=== PATIENT | female | born 2000 | race Hispanic/Latino ===

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

== ENCOUNTER 2019-01-03 20:22 | Emergency (ER) | payer MEDICAID, OTHER ==
[2019-01-03 21:04] LABS: BASOPHILS % (AUTO) 0.8 % (0.0-5.0); EOSINOPHILS % (AUTO) 1.5 % (0.0-8.0); HEMATOCRIT 38.7 % (36-48); LYMPHOCYTES % (AUTO) 27.8 % (21.0-51.0); MEAN CORPUSCULAR HEMOGLOBIN 33.4 pg (27.0-33.0); MEAN CORPUSCULAR VOLUME 95.5 fL (80-100); MONOCYTES % (AUTO) 7.8 % (3.0-13.0); NEUTROPHILS % (AUTO) 62.1 % (40.0-77.0); PLATELET COUNT (AUTO) 248 K/uL (130-400); RED BLOOD CELL COUNT(AUTO) 4.06 MIL/uL (4.00-5.50); RED CELL DISTRIBUTION WIDTH 12.5 % (11.0-15.5); WHITE BLOOD COUNT (AUTO) 8.6 K/uL (4.8-10.8)
[2019-01-03 21:20] LABS: APPEARANCE,URINE Cloudy (CLEAR); BILIRUBIN,URINE Negative (NEGATIVE); COLOR,URINE Yellow (YELLOW); GLUCOSE, URINE (UA) Negative (NEGATIVE); KETONES,URINE Negative (NEGATIVE); LEUKOCYTE ESTERASE ,URINE Negative (NEGATIVE); NITRATE,URINE Negative (NEGATIVE); OCCULT BLOOD,URINE Negative (NEGATIVE); PROTEIN,URINE Negative (NEGATIVE)
[2019-01-03 21:23] LABS: HCG,QUAL RESULT POSITIVE (NEGATIVE)
[2019-01-03 21:26] LABS: CREATININE 0.6 mg/dL (0.5-1.5); POTASSIUM 3.4 mmol/L (3.5-5.1)
[2019-01-03 21:38] LABS: BACTERIA,URINE Rare /HPF (None Seen); MUCUS,URINE Few LPF (None Seen); RBC,URINE 0-1 /HPF (0-1); SQUAMOUS EPITHELIAL CELL,UR 0-2 /HPF (0-2); WBC,URINE 0-1 /HPF (0-1)
[2019-01-03 21:49] LABS: AMPHET/METH SCREEN,URINE NEGATIVE (NEGATIVE); BARBITURATE SCREEN, URINE NEGATIVE (NEGATIVE); BENZODIAZEPINES SCREEN,URINE NEGATIVE (NEGATIVE); CANNABINOID SCREEN,URINE NEGATIVE (NEGATIVE); COCAINE SCREEN,URINE NEGATIVE (NEGATIVE); OPIATE SCREEN,URINE NEGATIVE (NEGATIVE); PHENCYCLIDINE SCREEN,URINE NEGATIVE (NEGATIVE)
== END 2019-01-03 23:14 | disposition home or self-care (01) ==
LOC: EDH 20:22
DX: O20.0 Threatened abortion (principal); O99.511 Diseases of the respiratory system complicating pregnancy, first trimester; J45.909 Unspecified asthma, uncomplicated; Z3A.01 Less than 8 weeks gestation of pregnancy
CPT/HCPCS: 36415; 76801; 80048; 80305; 81001; 81025; 84702; 85025; 86850; 86900; 86901

== ENCOUNTER 2019-03-15 04:20 | Emergency (ER) | payer MEDICAID ==
[2019-03-15 04:53] LABS: APPEARANCE,URINE Clear (CLEAR); BILIRUBIN,URINE Negative (NEGATIVE); COLOR,URINE Yellow (YELLOW); GLUCOSE, URINE (UA) Negative (NEGATIVE); KETONES,URINE Negative (NEGATIVE); LEUKOCYTE ESTERASE ,URINE Negative (NEGATIVE); NITRATE,URINE Negative (NEGATIVE); OCCULT BLOOD,URINE Negative (NEGATIVE); PROTEIN,URINE Negative (NEGATIVE)
[2019-03-15 05:02] LABS: HCG,QUAL RESULT POSITIVE (NEGATIVE)
[2019-03-15 05:08] LABS: BASOPHILS % (AUTO) 0.5 % (0.0-5.0); EOSINOPHILS % (AUTO) 1.1 % (0.0-8.0); HEMATOCRIT 32.2 % (36-48); LYMPHOCYTES % (AUTO) 29.6 % (21.0-51.0); MEAN CORPUSCULAR HEMOGLOBIN 34.2 pg (27.0-33.0); MEAN CORPUSCULAR HGB CONC 35.6 g/dL (32.0-36.0); MEAN CORPUSCULAR VOLUME 96.1 fL (80-100); MONOCYTES % (AUTO) 6.5 % (3.0-13.0); NEUTROPHILS % (AUTO) 62.3 % (40.0-77.0); NUCLEATED RED BLOOD CELLS 0.1 % (0.0-0.19); PLATELET COUNT (AUTO) 200 K/uL (130-400); RED BLOOD CELL COUNT(AUTO) 3.36 MIL/uL (4.00-5.50); RED CELL DISTRIBUTION WIDTH 12.4 % (11.0-15.5); WHITE BLOOD COUNT (AUTO) 6.9 K/uL (4.8-10.8)
[2019-03-15 05:18] LABS: CREATININE 0.5 mg/dL (0.5-1.5); POTASSIUM 3.8 mmol/L (3.5-5.1)
== END 2019-03-15 06:07 | disposition home or self-care (01) ==
LOC: EDH 04:20
DX: O20.9 Hemorrhage in early pregnancy, unspecified (principal); R10.2 Pelvic and perineal pain; Z3A.15 15 weeks gestation of pregnancy
CPT/HCPCS: 36415; 76805; 80048; 81003; 81025; 84702; 85025

== ENCOUNTER 2019-03-21 10:19 | Emergency (ER) | payer MEDICAID | END 2019-03-21 10:38 | disposition home or self-care (01) | LOC: EDH 10:19 | DX: Z04.3 Encounter for examination and observation following other accident (principal); O26.892 Other specified pregnancy related conditions, second trimester; Z79.899 Other long term (current) drug therapy; Z3A.17 17 weeks gestation of pregnancy; W01.0XXA Fall on same level from slipping, tripping and stumbling without subsequent striking against object, initial encounter; Y93.89 Activity, other specified; Y92.89 Other specified places as the place of occurrence of the external cause; Y99.8 Other external cause status | CPT/HCPCS: 99281 ==

== ENCOUNTER 2019-06-14 16:58 | Observation (INO) | payer MEDICAID ==
[2019-06-14 17:37] LABS: APPEARANCE,URINE Clear (CLEAR); BILIRUBIN,URINE Negative (NEGATIVE); COLOR,URINE Yellow (YELLOW); GLUCOSE, URINE (UA) Negative (NEGATIVE); KETONES,URINE Negative (NEGATIVE); LEUKOCYTE ESTERASE ,URINE Negative (NEGATIVE); NITRATE,URINE Negative (NEGATIVE); OCCULT BLOOD,URINE Negative (NEGATIVE); PROTEIN,URINE Negative (NEGATIVE); UROBILINOGEN,URINE 0.2 mg/dL (0.2-1.0)
== END 2019-06-14 18:25 | disposition home or self-care (01) ==
LOC: EDH 16:58 → LDH 17:10
PROVIDERS: ADMIT Obstetrics & Gynecology; ATTEND Obstetrics & Gynecology
DX: O62.9 Abnormality of forces of labor, unspecified (principal); Z3A.29 29 weeks gestation of pregnancy
CPT/HCPCS: 81003; 99284; G0378

== ENCOUNTER 2019-06-20 18:24 | Observation (INO) | payer MEDICAID ==
[~2019-06-20] VITALS: Ht 152.4 cm; Wt 80.7 kg
[2019-06-20 19:18] LABS: APPEARANCE,URINE Clear (CLEAR); BILIRUBIN,URINE Negative (NEGATIVE); COLOR,URINE Yellow (YELLOW); GLUCOSE, URINE (UA) Negative (NEGATIVE); KETONES,URINE Trace mg/dL (NEGATIVE); LEUKOCYTE ESTERASE ,URINE Negative (NEGATIVE); NITRATE,URINE Negative (NEGATIVE); OCCULT BLOOD,URINE Negative (NEGATIVE); PROTEIN,URINE Negative (NEGATIVE); UROBILINOGEN,URINE 0.2 mg/dL (0.2-1.0)
[2019-06-20 19:26] LABS: AMPHET/METH SCREEN,URINE NEGATIVE (NEGATIVE); BARBITURATE SCREEN, URINE NEGATIVE (NEGATIVE); BENZODIAZEPINES SCREEN,URINE NEGATIVE (NEGATIVE); CANNABINOID SCREEN,URINE NEGATIVE (NEGATIVE); COCAINE SCREEN,URINE NEGATIVE (NEGATIVE); OPIATE SCREEN,URINE NEGATIVE (NEGATIVE); PHENCYCLIDINE SCREEN,URINE NEGATIVE (NEGATIVE)
[2019-06-20 19:32] LABS: BACTERIA,URINE Rare /HPF (None Seen); MUCUS,URINE Rare LPF (None Seen); RBC,URINE 0-1 /HPF (0-1); SQUAMOUS EPITHELIAL CELL,UR Rare /HPF (0-2); WBC,URINE 0-1 /HPF (0-1)
[2019-06-20] MEDS ORDERED: LACTATED RINGERS 1000ML IV PRN (20:00)
[2019-06-20] MEDS ORDERED: TERBUTALINE SULFATE VIAL 1MG/ML SQ ONE (21:30)
== END 2019-06-20 23:30 | disposition home or self-care (01) ==
LOC: EDH 18:24 → LDH 18:25
PROVIDERS: ADMIT Obstetrics & Gynecology; ATTEND Obstetrics & Gynecology
DX: O42.913 Preterm premature rupture of membranes, unspecified as to length of time between rupture and onset of labor, third trimester (principal); O99.513 Diseases of the respiratory system complicating pregnancy, third trimester; R10.2 Pelvic and perineal pain; J45.909 Unspecified asthma, uncomplicated; Z3A.29 29 weeks gestation of pregnancy
CPT/HCPCS: 80305; 81001; 96372; 99284; G0378 ×5; J3105; 96360

== ENCOUNTER 2019-06-28 18:25 | Observation (INO) | payer MEDICAID ==
[~2019-06-28] VITALS: Ht 152.4 cm; Wt 80.7 kg
[2019-06-28 19:00] LABS: BILIRUBIN,URINE Negative (NEGATIVE); COLOR,URINE Yellow (YELLOW); GLUCOSE, URINE (UA) Negative (NEGATIVE); KETONES,URINE Negative (NEGATIVE); LEUKOCYTE ESTERASE ,URINE Negative (NEGATIVE); NITRATE,URINE Negative (NEGATIVE); OCCULT BLOOD,URINE Negative (NEGATIVE); PROTEIN,URINE Negative (NEGATIVE); UROBILINOGEN,URINE 0.2 mg/dL (0.2-1.0)
[2019-06-28 19:05] LABS: APPEARANCE,URINE CLEAR (CLEAR)
[2019-06-28 19:21] VITALS: BP 119/59
[2019-08-13] MEDS ORDERED: PREN-196 PO (18:27)
== END 2019-06-28 20:00 | disposition home or self-care (01) ==
LOC: EDH 18:25 → LDH 18:26
PROVIDERS: ADMIT Obstetrics & Gynecology; ATTEND Obstetrics & Gynecology
DX: O99.513 Diseases of the respiratory system complicating pregnancy, third trimester (principal); J45.909 Unspecified asthma, uncomplicated; Z3A.30 30 weeks gestation of pregnancy
CPT/HCPCS: 81003; 99284; G0378

== ENCOUNTER 2019-08-09 17:22 | Observation (INO) | payer MEDICAID ==
[~2019-08-09] VITALS: Ht 152.4 cm; Wt 85.7 kg
[2019-08-09 18:01] LABS: APPEARANCE,URINE Clear (CLEAR); BILIRUBIN,URINE Negative (NEGATIVE); COLOR,URINE Yellow (YELLOW); GLUCOSE, URINE (UA) Negative (NEGATIVE); KETONES,URINE Negative (NEGATIVE); LEUKOCYTE ESTERASE ,URINE Small (NEGATIVE); NITRATE,URINE Negative (NEGATIVE); OCCULT BLOOD,URINE Negative (NEGATIVE); PH,URINE 7.5 (5.0-8.0); PROTEIN,URINE Negative (NEGATIVE); UROBILINOGEN,URINE 0.2 mg/dL (0.2-1.0)
[2019-08-09 18:16] LABS: RBC,URINE 0-1 /HPF (0-1)
[2019-08-09 18:17] LABS: BACTERIA,URINE Rare /HPF (None Seen)
[2019-08-09 18:18] LABS: SQUAMOUS EPITHELIAL CELL,UR Few /HPF (0-2)
== END 2019-08-09 19:15 | disposition home or self-care (01) ==
LOC: EDH 17:22 → LDH 17:36
PROVIDERS: ADMIT Obstetrics & Gynecology; ATTEND Obstetrics & Gynecology
DX: O36.8130 Decreased fetal movements, third trimester, not applicable or unspecified (principal); O99.513 Diseases of the respiratory system complicating pregnancy, third trimester; J45.909 Unspecified asthma, uncomplicated; Z3A.36 36 weeks gestation of pregnancy
CPT/HCPCS: 76819; 81001; 99284; G0378 ×2

== ENCOUNTER 2019-08-12 12:50 | Inpatient (IN) | payer MEDICAID ==
[~2019-08-12] VITALS: Ht 152.4 cm; Wt 85.7 kg
[2019-08-12 13:25] VITALS: BP 118/58
[2019-08-12 13:26] VITALS: BP 113/58
[2019-08-12] MEDS ORDERED: AMPICILLIN 2GM+NS 100ML 100 ML IV SCH (13:30)
[2019-08-12 13:49] LABS: HEMATOCRIT 34.2 % (36-48); MEAN CORPUSCULAR HEMOGLOBIN 32.5 pg (27.0-33.0); MEAN CORPUSCULAR HGB CONC 34.5 g/dL (32.0-36.0); MEAN CORPUSCULAR VOLUME 94.2 fL (80-100); PLATELET COUNT (AUTO) 201 K/uL (130-400); RED BLOOD CELL COUNT(AUTO) 3.63 MIL/uL (4.00-5.50); RED CELL DISTRIBUTION WIDTH 12.7 % (11.0-15.5); WHITE BLOOD COUNT (AUTO) 8.6 K/uL (4.8-10.8)
[2019-08-12] MEDS: LACTATED RINGERS 1000ML 1,000 ML IV PRN (13:51)
[2019-08-12] MEDS: AMPICILLIN 1GM+NS 50ML 50 ML IV SCH ×2 (18:00→22:00)
[2019-08-13] MEDS: AMPICILLIN 1GM+NS 50ML 50 ML IV SCH ×2 (01:30→21:30)
[2019-08-13] MEDS ORDERED: OXYTOCIN 10 USP UNITS/ML 20 UNIT in LACTATED RINGERS 1000ML 1,000 ML IV SCH (03:00)
[2019-08-13] MEDS ORDERED: OXYTOCIN-LR 20 UNITS/1000 ML 1,000 ML IV ONE (03:03)
[2019-08-13] MEDS ORDERED: LACTATED RINGERS 500 ML 500 ML IV PRN (07:30)
[2019-08-13] MEDS ORDERED: ROPIVACAINE 0.2% 100ML VIAL 100 ML EP SCH (07:30)
[2019-08-13] MEDS ORDERED: EPHEDRINE SULFATE 50 MG/ML AMPULE IVP PRN (07:30)
[2019-08-13] MEDS ORDERED: NALOXONE HCL 0.4 MG/1 ML ML IV PRN (07:30)
[2019-08-13 08:10] LABS: HEPATITIS Bs ANTIGEN SCREEN P Negative (Negative)
[2019-08-13] MEDS ORDERED: MEPERIDINE-PF 50 MG/ML SYG IVP PRN (08:16)
[2019-08-13] MEDS ORDERED: PROMETHAZINE HCL 25 MG/ML 1ML AMPULE IM PRN ×2 (08:16→15:30)
[2019-08-13] MEDS ORDERED: FENTANYL CITRATE PF 50 MCG/1 ML 2ML VIAL ONE ×2 (10:11→14:26)
[2019-08-13] MEDS ORDERED: CALDOLOR 800MG+NS 250ML 250 ML IV ONE (13:55)
[2019-08-13] MEDS ORDERED: CEFAZOLIN SODIUM 1 GM VIAL ONE (13:55)
[2019-08-13] MEDS ORDERED: OXYTOCIN-LR 20 UNITS/1000 ML 2,000 ML IV ONE (13:56)
[2019-08-13] MEDS ORDERED: CEFAZOLIN SODIUM 1 GM VIAL IVP PRN (14:00)
[2019-08-13] MEDS ORDERED: MISOPROSTOL 200 MCG TABLET ONE (14:22)
[2019-08-13] MEDS ORDERED: METHYLERGONOVINE MALEATE 0.2 MG/1 ML ML ONE (14:22)
[2019-08-13] MEDS ORDERED: CITRIC ACID/SODIUM CITRATE 30 ML UDCUP ONE (14:25)
[2019-08-13] MEDS ORDERED: METOCLOPRAMIDE 10 MG/2 ML VIAL ONE (14:25)
[2019-08-13] MEDS ORDERED: MISOPROSTOL 200 MCG TABLET VG PRN (14:30)
[2019-08-13] MEDS ORDERED: OXYTOCIN-LR 20 UNITS/1000 ML 1,000 ML IV SCH ×2 (14:30→16:15)
[2019-08-13] MEDS ORDERED: LIDOCAINE PF 2% 5ML ABBOJECT ONE (14:30)
[2019-08-13] MEDS ORDERED: TRANEXAMIC ACID 1000MG/10ML IV PRN (14:30)
[2019-08-13] MEDS ORDERED: METHYLERGONOVINE MALEATE 0.2 MG/1 ML ML IM PRN (14:30)
[2019-08-13] MEDS ORDERED: MEPERIDINE-PF 25 MG/ML SYG ONE (14:49)
[2019-08-13] MEDS ORDERED: PHENYLEPHRINE HCL 10 MG/ML 1ML VIAL IV ONE (14:52)
[2019-08-13] MEDS ORDERED: DURAMORPH PF1 MG/ML 10ML AMP IV ONE (14:52)
[2019-08-13] MEDS ORDERED: OXYTOCIN 10 UNIT/1ML 10ML VIAL ONE (14:57)
[2019-08-13] MEDS ORDERED: ONDANSETRON HCL 4 MG/2 ML VIAL ONE (15:04)
[2019-08-13] MEDS ORDERED: DIPH,PERTUSS(ACELL),TET VAC/PF 0.5 ML VIAL IM SCH (15:30)
[2019-08-13] MEDS ORDERED: LANOLIN 30GM OINTMENT TP PRN (15:30)
[2019-08-13] MEDS ORDERED: SODIUM CHLORIDE 0.9% 10 ML VIAL IVP PRN (15:30)
[2019-08-13] MEDS ORDERED: DEXTROSE 5 %-0.45 % NACL 1,000 ML IV PRN (15:30)
[2019-08-13] MEDS ORDERED: MEASLES/MUMPS/RUBELLA VACCINE, LIVE 0.5 ML/VIAL SQ SCH (15:30)
[2019-08-13] MEDS ORDERED: MEPERIDINE-PF 75 MG/ML SYG IM PRN (15:30)
[2019-08-13] MEDS ORDERED: HYDROCODONE/ACETAMINOPHEN 5/325 MG TAB PO PRN (15:30)
[2019-08-13] MEDS ORDERED: IBUPROFEN 600 MG TABLET PO PRN (15:30)
[2019-08-13] MEDS ORDERED: ACETAMINOPHEN-CODEINE 300/30MG TAB PO PRN (15:30)
[2019-08-13] MEDS ORDERED: BISACODYL 10 MG SUPP.RECT RC PRN (15:30)
[2019-08-13] MEDS ORDERED: OXYTOCIN-LR 20 UNITS/1000 ML 1,000 ML IV PRN (15:30)
[2019-08-13] MEDS ORDERED: LORATADINE 10 MG TABLET PO PRN (18:00)
[2019-08-13 18:11] VITALS: BP 128/66
[2019-08-13] MEDS ORDERED: PREN-196 PO ×2 (18:27)
[2019-08-13 19:30] VITALS: BP 136/78
[2019-08-13] MEDS: DOCUSATE SODIUM 100 MG CAP PO SCH (21:21)
[2019-08-13] MEDS: SIMETHICONE 80 MG TAB.CHEW PO PRN (21:21)
[2019-08-13] MEDS: LACTATED RINGERS 1000ML 1,000 ML IV SCH (22:06)
[2019-08-13] MEDS: CALDOLOR 800MG+NS 250ML 250 ML IV SCH ×2 (22:30→23:34)
[2019-08-13] MEDS: IBUPROFEN 800 MG TAB PO SCH (23:30)
[2019-08-13 23:55] VITALS: BP 110/58
[2019-08-14] MEDS: AMPICILLIN 1GM+NS 50ML 50 ML IV SCH ×2 (01:30→05:30)
[2019-08-14 04:00] VITALS: BP 116/62
[2019-08-14] MEDS: LACTATED RINGERS 1000ML 1,000 ML IV SCH (04:46)
[2019-08-14 05:53] LABS: HEMATOCRIT 28.8 % (36-48); MEAN CORPUSCULAR HEMOGLOBIN 32.7 pg (27.0-33.0); PLATELET COUNT (AUTO) 152 K/uL (130-400); RED CELL DISTRIBUTION WIDTH 12.7 % (11.0-15.5); WHITE BLOOD COUNT (AUTO) 10.1 K/uL (4.8-10.8)
--- NOTE | 2019-08-14 06:00 | NUR ---
EPIDURAL D/C EPIDURAL DISCONTINUED ORDERED. PATIENT ASSISTED INTO L. LATERAL POSITION TO REMOVE EPIDURAL CATHETER. BLUE TIP INTACT, PATIENT TOLERATED WELL. PATIENT ASSISTED INTO SUPINE POSITION AND ALTAGRACIA CARE PROVIDED. NEW PADS PLACED. PATIENT INSTRUCTED TO CALL FOR ASSISTANCE IF NEEDING ANYTHING. CALL BAR PLACED WITHIN REACH.
[2019-08-14] MEDS: CALDOLOR 800MG+NS 250ML 250 ML IV SCH ×2 (06:23→07:32)
[2019-08-14 08:00] VITALS: BP 107/62
[2019-08-14] MEDS ORDERED: LIDOCAINE 5% TOPICAL PATCH TP SCH (09:00)
[2019-08-14] MEDS: DOCUSATE SODIUM 100 MG CAP PO SCH (09:04)
[2019-08-14] MEDS: SIMETHICONE 80 MG TAB.CHEW PO PRN (09:04)
[2019-08-14 11:37] VITALS: BP 101/50
[2019-08-14 15:40] VITALS: BP 118/48
[2019-08-14] MEDS: IBUPROFEN 800 MG TAB PO SCH (16:13)
--- NOTE | 2019-08-14 17:25 | NUR ---
DISCHARGE PT LEFT UNIT VIA WHEELCHAIR, WITH BABY IN ARMS, ACCOMPANIED BY SIGNIFICANT OTHER. DENIED PAIN AND HAD NO COMPLAINTS. BABY STRAPPED IN CAR SEAT. PT AND BABY TRANSPORTED BY PERSONAL VEHICLE.
== END 2019-08-14 17:25 | disposition home or self-care (01) | DRG 540 ==
LOC: OBSVTOIN 12:50 → LDH 12:50 → WSH 08-13 18:05
PROVIDERS: ADMIT Obstetrics & Gynecology; ATTEND Obstetrics & Gynecology
PROC: 3E0234Z Introduction of Serum, Toxoid and Vaccine into Muscle, Percutaneous Approach (ICD-10-PCS; 2019-08-13)
PROC: 3E0234Z Introduction of Serum, Toxoid and Vaccine into Muscle, Percutaneous Approach (ICD-10-PCS; 2019-08-13)
PROC: 10D00Z1 Extraction of Products of Conception, Low, Open Approach (ICD-10-PCS; principal; 2019-08-13 14:35)
DX: O42.02 Full-term premature rupture of membranes, onset of labor within 24 hours of rupture (principal); O62.2 Other uterine inertia; O99.824 Streptococcus B carrier state complicating childbirth; Z37.0 Single live birth; Z3A.37 37 weeks gestation of pregnancy; Z23 Encounter for immunization
CPT/HCPCS: 36415; 59510; 76805; 76819; 81001; 85027; 86592; 86850; 86900; 86901; 87340; A4314; A4344; G0378; J0290; J0690; J1741; J2001; J2175; J2210; J2274; J2370; J2405; J2550; J2590; J2765; J2795; J3010; J7120

== ENCOUNTER 2020-09-21 00:06 | Emergency (ER) | payer MEDICAID ==
[~2020-09-21] VITALS: Ht 152.4 cm; Wt 86.2 kg
[~2020-09-21 00:06] MED LIST: PREN-196 PO
[2020-09-21 00:18] VITALS: BP 138/81
[2020-09-21 00:48] LABS: BASOPHILS % (AUTO) 0.3 % (0.0-5.0); EOSINOPHILS % (AUTO) 0.8 % (0.0-8.0); MEAN CORPUSCULAR HEMOGLOBIN 32.2 pg (27.0-33.0); MEAN CORPUSCULAR HGB CONC 34.3 g/dL (32.0-36.0); MEAN CORPUSCULAR VOLUME 93.8 fL (80-100); MONOCYTES % (AUTO) 6.1 % (3.0-13.0); NEUTROPHILS % (AUTO) 78.4 % (40.0-77.0); PLATELET COUNT (AUTO) 351 K/uL (130-400); RED BLOOD CELL COUNT(AUTO) 4.69 MIL/uL (4.00-5.50); RED CELL DISTRIBUTION WIDTH 11.9 % (11.0-15.5); WHITE BLOOD COUNT (AUTO) 15.7 K/uL (4.8-10.8)
[2020-09-21 01:01] LABS: APPEARANCE,URINE Clear (CLEAR); BILIRUBIN,URINE Negative (NEGATIVE); COLOR,URINE Yellow (YELLOW); GLUCOSE, URINE (UA) Negative (NEGATIVE); KETONES,URINE Trace mg/dL (NEGATIVE); LEUKOCYTE ESTERASE ,URINE Negative (NEGATIVE); NITRATE,URINE Negative (NEGATIVE); OCCULT BLOOD,URINE Negative (NEGATIVE); PH,URINE 5.5 (5.0-8.0); PROTEIN,URINE Negative (NEGATIVE)
[2020-09-21 01:02] LABS: CREATININE 0.7 mg/dL (0.5-1.5); POTASSIUM 4.4 mmol/L (3.5-5.1)
[2020-09-21 01:05] LABS: ALBUMIN 4.2 g/dL (3.5-5.0); BILIRUBIN,TOTAL 0.5 mg/dL (0.2-1.0); TOTAL PROTEIN, SERUM 9.1 g/dL (6.0-8.3)
[2020-09-21] MEDS ORDERED: MORPHINE 4 MG SYG (4MG/1ML) IV ONE (01:15)
[2020-09-21] MEDS ORDERED: ONDANSETRON HCL 4 MG/2 ML VIAL IVP SCH (01:15)
[2020-09-21 01:30] VITALS: BP 111/75
[2020-09-21 02:40] VITALS: BP 117/68
[2020-09-21] MEDS ORDERED: ONDA4TAB4 PO (03:41)
[2020-09-21] MEDS: SUCRALFATE 1 GM TABLET PO SCH ×2 (04:00→04:02)
== END 2020-09-21 04:20 | disposition home or self-care (01) ==
LOC: EDH 00:32
DX: R10.9 Unspecified abdominal pain (principal); R19.7 Diarrhea, unspecified; R11.2 Nausea with vomiting, unspecified; Z79.899 Other long term (current) drug therapy
CPT/HCPCS: 36415; 74176; 80053; 81003; 81025; 82150; 83690; 85025; 96374; 96375; 99284; J2270; J2405

== ENCOUNTER 2022-01-23 15:41 | Emergency (ER) | payer MEDICAID ==
[~2022-01-23] VITALS: Ht 152.4 cm; Wt 92.5 kg
[~2022-01-23 15:41] MED LIST changes: +ONDA4TAB4 PO
[2022-01-23 16:10] LABS: BASOPHILS % (AUTO) 0.2 % (0.0-5.0); EOSINOPHILS % (AUTO) 0.7 % (0.0-8.0); HEMATOCRIT 34.7 % (36-48); LYMPHOCYTES % (AUTO) 30.2 % (21.0-51.0); MEAN CORPUSCULAR HEMOGLOBIN 31.8 pg (27.0-33.0); MEAN CORPUSCULAR HGB CONC 34.9 g/dL (32.0-36.0); MEAN CORPUSCULAR VOLUME 91.3 fL (79-99); MONOCYTES % (AUTO) 4.8 % (3.0-13.0); NEUTROPHILS % (AUTO) 63.9 % (40.0-77.0); PLATELET COUNT (AUTO) 246 K/uL (130-400); RED CELL DISTRIBUTION WIDTH 12.7 % (11.0-15.5); WHITE BLOOD COUNT (AUTO) 8.2 K/uL (4.8-10.8)
[2022-01-23 16:15] LABS: APPEARANCE,URINE CLEAR (CLEAR); BILIRUBIN,URINE NEGATIVE (NEGATIVE); COLOR,URINE YELLOW (YELLOW); GLUCOSE, URINE (UA) NEGATIVE (NEGATIVE); KETONES,URINE NEGATIVE (NEGATIVE); LEUKOCYTE ESTERASE ,URINE 25 Leu/uL (NEGATIVE); NITRATE,URINE NEGATIVE (NEGATIVE); OCCULT BLOOD,URINE NEGATIVE (NEGATIVE); PROTEIN,URINE 20 mg/dL (NEGATIVE); UROBILINOGEN,URINE 0.2 mg/dL (0.2-1.0)
[2022-01-23 16:17] LABS: HCG,QUALITATIVE URINE POSITIVE (NEGATIVE)
[2022-01-23 16:19] LABS: BACTERIA,URINE RARE /HPF (None Seen); MUCUS,URINE RARE LPF (None Seen); SQUAMOUS EPITHELIAL CELL,UR FEW /HPF (0-2)
[2022-01-23 16:20] LABS: CREATININE 0.8 mg/dL (0.5-1.5); POTASSIUM 3.9 mmol/L (3.5-5.1)
[2022-01-23 16:46] LABS: ALBUMIN 3.3 g/dL (3.5-5.0); TOTAL PROTEIN, SERUM 7.4 g/dL (6.0-8.3)
[2022-01-23 17:34] VITALS: BP 122/55
[2022-01-23] MEDS ORDERED: CEPH500B PO (18:23)
== END 2022-01-23 18:37 | disposition home or self-care (01) ==
LOC: EDH 15:41
DX: O23.41 Unspecified infection of urinary tract in pregnancy, first trimester (principal); N39.0 Urinary tract infection, site not specified; Z98.890 Other specified postprocedural states; Z3A.10 10 weeks gestation of pregnancy; V49.49XA Driver injured in collision with other motor vehicles in traffic accident, initial encounter; Y93.89 Activity, other specified; Y92.413 State road as the place of occurrence of the external cause; Y99.8 Other external cause status
CPT/HCPCS: 36415; 76801; 80053; 81001; 81025; 84702; 85025